=== PATIENT | female | born 1945 | race Caucasian/White ===

== ENCOUNTER 2019-02-03 17:35 | Emergency (ER) | payer MEDICARE ==
[~2019-02-03] VITALS: Ht 160 cm; Wt 55.0 kg
--- NOTE | 2019-02-03 18:17 | NUR ---
Attempted to get medical history and assessment from patient. Pt on cell phone, held up hand, and refused to answer any questions at this time. Will reattempt.
[2019-02-03] MEDS ORDERED: ibuprofen tablet 400 MG TABLET PO ONE (19:30)
[2019-02-03 19:46] VITALS: BP 143/73
== END 2019-02-03 19:49 | disposition home or self-care (01) ==
LOC: ER 17:37
DX: S46.811A Strain of other muscles, fascia and tendons at shoulder and upper arm level, right arm, initial encounter (principal); S46.812A Strain of other muscles, fascia and tendons at shoulder and upper arm level, left arm, initial encounter; M54.5 Low back pain; Z60.2 Problems related to living alone; V87.7XXA Person injured in collision between other specified motor vehicles (traffic), initial encounter; Y93.89 Activity, other specified; Y92.488 Other paved roadways as the place of occurrence of the external cause; Y99.8 Other external cause status
CPT/HCPCS: 99282